=== PATIENT | male | born 1930 | race Caucasian/White ===

== ENCOUNTER → 2017-08-14 | Outpatient (CLI) | payer MEDICARE ==
--- NOTE | 2017-08-14 11:51 | RAD ---
Complete abdomen ultrasound study History: Abdominal pain Findings: The pancreas is completely obscured due to overlying bowel gas. The proximal abdominal aorta is obscured due to bowel gas. The mid and distal abdominal aorta are visualized. There is focal aneurysmal dilatation of the distal abdominal aorta. The AP and transverse dimensions are 4.1 cm and 4.1 cm respectively. This does not extend into the iliac arteries. The gallbladder is normal and no gallstones are seen. The extrahepatic bile duct measures 3.5 mm in caliber which is normal. The intrahepatic portion of the IVC is unremarkable. The liver measures 12.8 cm in length and is homogeneous. The length of the right kidney is 9.8 cm and the length of the left kidney is 11.3 cm. No hydronephrosis or renal mass or perinephric fluid collection is seen on either side. There is a small peripelvic cyst of the mid aspect of the left kidney which measures 14 mm in size. The spleen measures 7.6 cm in length and is homogeneous. No ascites is seen. IMPRESSION: Distal abdominal aortic aneurysm measuring 4.1 cm in greatest AP or transverse dimension.
== END | disposition home or self-care (01) ==
LOC: US 09:44
PROVIDERS: ATTEND Family Medicine
DX: N28.1 Cyst of kidney, acquired (principal); I71.4 Abdominal aortic aneurysm, without rupture
CPT/HCPCS: 76700